=== PATIENT | female | born 1995 | race Hispanic/Latino ===

== ENCOUNTER 2018-07-25 12:57 | Emergency (ER) | payer OTHER, MEDICAID, SELFPAY ==
[2018-07-25 13:02] VITALS: BP 141/89; PULSE 83; RESP 18; O2SAT 100
--- NOTE | 2018-07-25 13:15 | ED_ITS ---
HPI - Nausea/Vomiting/Diarrhea General Chief complaint: Nausea/Vomiting/Diarrhea Stated complaint: Dehydrated, going through withdrawels Time Seen by Provider: 07/25/18 13:08 Source: patient Mode of arrival: ambulatory Limitations: no limitations History of Present Illness HPI Narrative: [id number] with history of IV drug abuse presents with withdrawal symptoms. She has a long history of intravenous heroin abuse and had been going to a local facility receiving methadone. She had tapered up to a dose as high as 95 mg but after missing a few appointments was dropped back to 30 mg. Her last dose was July 12 and last follow-up at that clinic was on July 22. She was unable to produce a urine sample but oral swab was clean. She had mild withdrawal symptoms at that point time. She admittedly has been using IV heroin and attempt to improve her symptoms. There is fentanyl known to be in local heroin. Patient has persistent nausea and vomiting is not dizzy weak and lightheaded. She is agitated and has generalized abdominal cramping. MD complaint: nausea, vomiting and abdominal pain Onset (ago): hour(s) Description of Vomiting: food contents Description of Diarrhea: none Associated Abdominal Pain: Yes Location of pain: diffuse Quality: cramping Relieving factors: none Exacerbating factors: none Associated symptoms: nausea/vomiting Related Data Home Medications Medication Instructions Recorded Confirmed citalopram 40 mg PO DAILY 07/25/18 naloxone [Narcan] 1 spray INTRANASAL PRN PRN 07/25/18 07/25/18 Previous Rx's Medication Instructions Recorded alprazolam 0.25 mg PO BID-TID PRN #10 tab 07/25/18 ondansetron HCl [Zofran] 4 mg PO QID PRN #10 tab 07/25/18 Allergies Allergy/AdvReac Type Severity Reaction Status Date / Time No Known Drug Allergies Allergy Verified 07/25/18 13:11 Review of Systems Review of Systems All systems reviewed & are unremarkable except as noted in HPI and below Constitutional Reports chills, Denies fever(s), Reports headache(s), Denies lethargy and Denies weakness Eyes Denies change in vision, Denies eye discharge, Denies irritation and Denies loss of vision ENT Ears, Nose, Mouth, and Throat: Denies change in voice, Reports headache(s), Denies neck pain and Denies sore throat Cardiovascular Denies chest pain, Denies irregular heart rhythm, Denies lightheadedness, Denies palpitations, Denies dyspnea, Denies dyspnea on exertion and Denies orthopnea Respiratory Denies cough, Denies dyspnea, Denies dyspnea on exertion and Denies wheezing Gastrointestinal Gastrointestinal: Denies abdominal pain, Denies change in bowel habits, Denies diarrhea, Reports nausea and Reports vomiting Genitourinary Denies hematuria, Denies flank pain, Denies urinary incontinence and Denies urinary urgency Musculoskeletal Denies neck pain Integumentary/Breasts Denies pruritus, Denies erythema, Denies rash and Denies wounds Neurologic Denies confusion, Reports headache(s), Denies loss of vision and Denies weakness Psychiatric Denies anxiety, Denies confusion, Denies depression, Denies homicidal ideation and Denies suicidal ideation Endocrine Denies palpitations Hematologic/Lymphatic Denies easy bruising Allergic/Immunologic Denies wheezing PFSH Social History Smoking Status: Current every day smoker substance use type: IV drugs Exam Narrative Exam Narrative: GENERAL: 23-year-old female in obvious distress, writhing on the cart, mildly diaphoretic and vomiting HEAD: Atraumatic. Normocephalic. No temporal or scalp tenderness. EYES: Pupils equal round and reactive. Extraocular motions intact. No scleral icterus. No injection or drainage. ENT: Nose without bleeding, purulent drainage or septal hematoma. Throat without erythema, tonsillar hypertrophy or exudate. Uvula midline. Airway patent. NECK: Trachea midline. No JVD or lymphadenopathy. Supple, nontender, no meningeal signs. CARDIOVASCULAR: Regular rate and rhythm without murmurs, gallops, or rubs. RESPIRATORY: Clear to auscultation. Breath sounds equal bilaterally. No wheezes , rales, or rhonchi. GASTROINTESTINAL: Abdomen soft, non-tender, nondistended. No hepato-splenomegaly , or palpable masses. No guarding. EXTREMITIES: No clubbing, cyanosis, or edema. No joint tenderness, effusion, or edema noted. BACK: Nontender without deformity or crepitance. No flank tenderness. NEURO: AOx3. SKIN: No rash or erythema. Diaphoretic Initial Vital Signs Initial Vital Signs: Vital Signs Pulse Rate 83 07/25/18 13:02 Respiratory Rate 18 07/25/18 13:02 Blood Pressure 141/89 H 07/25/18 13:02 Pulse Oximetry 100 07/25/18 13:02 Course Orders Ordered: ED Orders 07/25/18 13:15 Urine Drug Screen, Rapid Stat 07/25/18 13:25 Comprehensive Metabolic Panel Stat 07/25/18 13:53 Complete Blood Count AUTO DIFF Stat Discontinued Medications Clonidine HCl (Catapres-Tts 1) 0.1 mg TOP NOW ONE Stop: 07/25/18 13:28 Last Admin: 07/25/18 13:35 Dose: 0.1 mg Sodium Chloride (Normal Saline 0.9%) 1,000 mls @ 1,000 mls/hr IV BOLUS ONE Stop: 07/25/18 14:14 Last Infusion: 07/25/18 15:33 Dose: 0 mls/hr Admin: 07/25/18 14:23 Dose: 1,000 mls/hr Lorazepam (Ativan) 1 mg IV NOW ONE Stop: 07/25/18 14:56 Last Admin: 07/25/18 15:07 Dose: 1 mg Ondansetron HCl (Zofran) 4 mg IV NOW ONE Stop: 07/25/18 13:16 Last Admin: 07/25/18 14:22 Dose: 4 mg Consultations Consultation #1: I have discussed this case with the providers at local methadone clinic whom provided the details noted in the history and physical. They are happy to see her again on Saturday as the clinic is closed on Saturday Vital Signs - 8 hr 07/25/18 13:02 Pulse Rate 83 Respiratory Rate 18 Blood Pressure 141/89 H Pulse Oximetry 100 MDM - Nausea/Vomiting/Diarrhea Lab Data Result diagrams: 07/25/18 13:53 07/25/18 13:25 Lab Results 07/25/18 07/25/18 Range/Units 13:25 13:53 WBC 11.5 H (4.5-11.0) X10^3/uL RBC 5.06 (4.0-5.2) X10^6/uL Hgb 14.6 (12.0-16.0) g/dL Hct 43.7 (36-46) % MCV 86.4 (80-100) fL MCH 28.9 (26-34) PG MCHC 33.5 (30-36) % RDW 13.6 (11.6-14.8) % Plt Count 296 (150-400) X10^3/uL Neut % (Auto) 86.8 H (50-75) % Lymph % (Auto) 8.4 L (25-40) % [place] % (Auto) 3.7 (3-14) % Eos % (Auto) 0.0 L (2-4) % Baso % (Auto) 1.1 (0-2) % Neut # (Auto) 93175 H (1321-5347) /uL Sodium 143 (137-145) mmol/L Potassium 4.1 (3.4-5.1) mmol/L Chloride 102 (98-107) mmol/L Carbon Dioxide 24 (22-32) mmol/L BUN 9 (7-17) mg/dL Creatinine 0.90 (0.52-1.04) mg/dL Estimated GFR > 60.0 (>60) mL/min BUN/Creatinine Ratio 10.0 (6-22) Glucose 125 H (70-100) mg/dL Calcium 10.4 H (8.4-10.2) mg/dL Total Bilirubin 0.6 (0.2-1.3) mg/dL AST 24 (14-36) IU/L ALT 25 (9-52) IU/L Alkaline Phosphatase 120 (38-126) U/L Total Protein 9.5 H (6.3-8.2) g/dL Albumin 5.2 H (3.5-5.0) g/dL Globulin 4.3 H (1.7-4.1) g/dL Albumin/Globulin Ratio 1.2 (1.0-2.8) Discharge Plan Departure Patient Disposition: Home Clinical Impression: Withdrawal from opioids Instructions: DI for Opioid Addiction Activity Restrictions/Additional Instructions: *You have been diagnosed with [opioid withdrawal ] *What to do: *Take medications as directed *Follow up with your primary care provider in 2-3 days, call for an appointment. Let them know you were seen in the Emergency Department and that we ask that you be seen in follow up *Return to ER if you should have any new, worsening or concerning symptoms Prescriptions: New ondansetron HCl [Zofran] 4 mg tablet 4 mg PO QID PRN (Reason: nausea and vomiting) Qty: 10 RF: 0 alprazolam 0.5 mg tablet 0.25 mg PO BID-TID PRN (Reason: anxiety) Qty: 10 RF: 0 No Action citalopram 40 mg tablet 40 mg PO DAILY RF: 0 naloxone [Narcan] 4 mg/actuation spray,non-aerosol 1 spray Intranasal PRN PRN (Reason: overdose) RF: 0 Referrals: [facility] [Outside] Provider,Conversion [Non-Staff] -
[2018-07-25] MEDS: cloNIDine TTS 0.1 MG PATCH TOP (13:35)
[2018-07-25 13:54] LABS: Alanine Aminotransferase 25 IU/L (9-52); Albumin 5.2 g/dL (3.5-5.0); Albumin Globulin Ratio 1.2 (1.0-2.8); Alkaline Phosphatase 120 U/L (38-126); Aspartate Aminotransferase 24 IU/L (14-36); Bilirubin Total 0.6 mg/dL (0.2-1.3); Blood Urea Nitrogen 9 mg/dL (7-17); Calcium 10.4 mg/dL (8.4-10.2); Carbon Dioxide 24 mmol/L (22-32); Chloride 102 mmol/L (98-107); Estimated Glomerular Filt Rate > 60.0 mL/min (>60); Globulin 4.3 g/dL (1.7-4.1); Glucose 125 mg/dL (70-100); HEMOLYSIS 27 (0-50); Potassium 4.1 mmol/L (3.4-5.1); Sodium 143 mmol/L (137-145); Total Protein 9.5 g/dL (6.3-8.2)
[2018-07-25 14:00] VITALS: BP 125/83; PULSE 89; RESP 28; TEMP 37.1; O2SAT 100
[2018-07-25 14:01] LABS: Add Manual Diff / Slide Review NO; Basophils Percent Auto 1.1 % (0-2); Hematocrit 43.7 % (36-46); Hemoglobin 14.6 g/dL (12.0-16.0); Lymphocytes Percent Auto 8.4 % (25-40); Mean Corpuscular HGB Conc 33.5 % (30-36); Mean Corpuscular Hemoglobin 28.9 PG (26-34); Mean Corpuscular Volume 86.4 fL (80-100); Monocytes Percent Auto 3.7 % (3-14); Neutrophils Absolute Auto 10000 /uL (3000-5900); Neutrophils Percent Auto 86.8 % (50-75); Platelet Count 296 X10^3/uL (150-400); Red Blood Cell Count 5.06 X10^6/uL (4.0-5.2); Red Cell Distribution Width 13.6 % (11.6-14.8); White Blood Cell Count 11.5 X10^3/uL (4.5-11.0)
[2018-07-25] MEDS: ONDANSETRON 4 MG/2 ML INJ IV (14:22)
[2018-07-25] MEDS: SODIUM CHLORIDE 0.9% 1,000 ML 1000 ML IV (14:23)
[2018-07-25 15:00] VITALS: BP 146/88; PULSE 78; RESP 100; O2SAT 100
[2018-07-25] MEDS: LORazepam 2 MG/ML SYRINGE 1 MG IV (15:07)
--- NOTE | 2018-07-25 15:19 | CM.SWNOTE ---
ED CHAINSTITCH P[employer] OUTSEAMER NOTE Presenting problem: CUSTOMER INSIGHT ANALYST reviewed record and learned that identified presenting problem is withdrawal from IV drugs. Pt had been taking Methadone, was connected with [facility], but due to soem missed appointments has not been taking Methadone for a few days. Pt came in with symptoms of withdrawal. Assessment: Due to pt's significant discomfort, CUSTOMER INSIGHT ANALYST did not meet with her, but spoke with her boyfriend. She was in agreement with this. According to pt's boyfriend, she does not do well with Suboxone, and has a dx of PTSD, anxiety and Schizophrenia. Pt was lying in bed, appeared quite agitated was asking that bf call her mommy and spoke of feeling quite sick. Goal: Once medically cleared, pt will return home. Resources were provided to pt's boyfrined. CUSTOMER INSIGHT ANALYST contacted [facility] [phone]. I was informed that there is a 2 week wait for MH services and a 2-3 week wait for CD services. Unfortunately the pt needs to call and arrange for two separate intake appointments. Pt's boyfreind seemed to understand the information presented and [facility] also provided a written handout with information about several different community agencies. No further SW needs identified, but SW remains available during this scheduled shift. Thank you ALAN Castillo
[2018-07-25 16:17] VITALS: BP 149/79; PULSE 18; RESP 20; O2SAT 100
== END 2018-07-25 16:28 | disposition home or self-care (01) ==
PROVIDERS: Emergency Provider Emergency Medicine
DX: F11.23 Opioid dependence with withdrawal (principal)
CPT/HCPCS: 36415; 80053; 85025; 96361; 96374; 96375; 99283; 99284; J2060; J2405

== ENCOUNTER 2018-09-12 19:12 | Emergency (ER) | payer OTHER, MEDICAID, SELFPAY ==
[2018-09-12 19:24] VITALS: BP 157/91; PULSE 107; RESP 20; TEMP 36.9; O2SAT 99
--- NOTE | 2018-09-12 19:29 | ED.FEMALEGU ---
HPI - Female Genitourinary General Chief complaint: Vaginal Bleeding Stated complaint: VAGINAL BLEEDING,THROWING UP Time Seen by Provider: 09/12/18 19:20 Source: patient Mode of arrival: ambulatory Limitations: no limitations History of Present Illness HPI Narrative: Patient is a 23-year-old female who presents with vaginal bleeding. She said she had normal period 2 weeks ago however over the last 2 days she has had increasing blood clots and pelvic pain. She denies any contraceptive use and does not believe that she is . She denies any lightheadedness dizziness or shortness of breath. He does seem to be slightly clammy and uncomfortable. She complains of nausea but no vomiting. She says she has gone through number of regular tampons today does not think she is going through more than 1 hr. She does have a history of IV drug abuse and heroin she was last seen with heroin withdrawal. She says she has not used for number weeks although she does admit to using to Percocet. And she was around somebody he was smoking methamphetamine but denies smoking. Related Data Home Medications Medication Instructions Recorded Confirmed naloxone [Narcan] 1 spray INTRANASAL PRN PRN 07/25/18 09/12/18 Previous Rx's Medication Instructions Recorded medroxyprogesterone 20 mg PO Q2HR #10 tab 09/12/18 Allergies Allergy/AdvReac Type Severity Reaction Status Date / Time No Known Drug Allergies Allergy Verified 07/25/18 13:11 Review of Systems Review of Systems GENERAL: Denies chills, fatigue, malaise, fever, sweats, travel HEENT: Denies sinus pain, ear pain, sore throat, difficulty swallowing, neck pain RESPIRATORY: Denies dyspnea, cough, wheezing, hemoptysis, sputum. CARDIOVASCULAR: Denies chest pain, palpitations, orthopnea, edema GASTROINTESTINAL: Denies nausea, vomiting, abdominal pain, diarrhea, constipation, melena. : Denies dysuria, frequency, incontinence, hematuria, urinary retention, flank pain. COOK RESTAURANT: See HPI MUSCULOSKELETAL: Denies weakness, joint pain, or bony pain SKIN: No rash, no erythema, no pruritus NEUROLOGIC: Denies weakness, dizziness, headache, numbness, change in speech, confusion PSYCHIATRIC: No concerning psychosocial issues. 12 point review of systems is negative except for those stated above and HPI [facility] Medical History Patient denies medical problems (Acute) Social History Smoking Status: Current every day smoker substance use type: IV drugs Exam Initial Vital Signs Initial Vital Signs: Vital Signs Temperature 98.4 F 09/12/18 19:24 Pulse Rate 107 H 09/12/18 19:24 Respiratory Rate 20 09/12/18 19:24 Blood Pressure 157/91 H 09/12/18 19:24 Pulse Oximetry 99 09/12/18 19:24 GENERAL: Young female appears uncomfortable alert oriented x4 HEENT: Head atraumatic,EOMI, pupils reactive CARDIOVASCULAR: Regular rate and rhythm without murmurs, rubs or gallops. RESPIRATORY: Breath sounds equal bilaterally, no wheezes rales or rhonchi. ABDOMEN: Soft, nontender. Normoactive bowel sounds all 4 quadrants. No guarding or rebound. PELVIC: External genitalia is normal, mild vaginal bleeding, os open EXTREMITIES: Normal range of motion, no clubbing or edema. Neurovascularly intact NEUROLOGICAL: Alert and oriented x4.Normal gait and speech. Cranial nerves II through XII grossly intact. SKIN: Warm, dry, no laceration, no petechiae, no rashes or lesions. Course Orders Ordered: ED Orders 09/12/18 19:30 US pelvic complete Stat 09/12/18 19:40 Complete Blood Count AUTO DIFF Stat Comprehensive Metabolic Panel Stat 09/12/18 20:45 Urine Culture Stat Urine Microscopic Stat Discontinued Medications Sodium Chloride (Normal Saline 0.9%) 1,000 mls @ 1,000 mls/hr IV BOLUS ONE Stop: 09/12/18 20:28 Last Infusion: 09/12/18 21:45 Dose: 0 mls/hr Admin: 09/12/18 19:49 Dose: 1,000 mls/hr Ketorolac Tromethamine (Toradol) 30 mg IV NOW ONE Stop: 09/12/18 19:30 Last Admin: 09/12/18 19:53 Dose: 30 mg Medroxyprogesterone Acetate (Medroxyprogesterone) 20 mg PO NOW ONE Stop: 09/12/18 21:03 Last Admin: 09/12/18 21:24 Dose: 20 mg Medroxyprogesterone Acetate (Medroxyprogesterone) 40 mg PO NOW VIRGIL Stop: 09/13/18 21:16 Last Admin: 09/12/18 21:25 Dose: 40 mg Ondansetron HCl (Zofran) 4 mg IV NOW ONE Stop: 09/12/18 19:30 Last Admin: 09/12/18 19:50 Dose: 4 mg Vital Signs - 8 hr 09/12/18 19:24 09/12/18 21:21 Temperature 98.4 F Pulse Rate 107 H 108 H Respiratory Rate 20 Blood Pressure 157/91 H Blood Pressure [Left Arm] 149/107 H Pulse Oximetry 99 98 MDM - Female Genitourinary Lab Data Attestation: I reviewed the patient's lab results. Result diagrams: 09/12/18 19:40 09/12/18 19:40 Lab Results 09/12/18 09/12/18 09/12/18 Range/Units 19:40 19:40 20:45 WBC 12.1 H (4.5-11.0) X10^3/uL RBC 4.56 (4.0-5.2) X10^6/uL Hgb 13.5 (12.0-16.0) g/dL Hct 40.6 (36-46) % MCV 89.1 (80-100) fL MCH 29.7 (26-34) PG MCHC 33.3 (30-36) % RDW 15.6 H (11.6-14.8) % Plt Count 251 (150-400) X10^3/uL Neut % (Auto) 72.0 (50-75) % Lymph % (Auto) 21.6 L (25-40) % [place] % (Auto) 5.6 (3-14) % Eos % (Auto) 0.4 L (2-4) % Baso % (Auto) 0.4 (0-2) % Neut # (Auto) 8700 H (6499-8903) /uL Sodium 142 (137-145) mmol/L Potassium 3.8 (3.4-5.1) mmol/L Chloride 104 (98-107) mmol/L Carbon Dioxide 25 (22-32) mmol/L BUN 10 (7-17) mg/dL Creatinine 0.90 (0.52-1.04) mg/dL Estimated GFR > 60.0 (>60) mL/min BUN/Creatinine Ratio 11.1 (6-22) Glucose 111 H (70-100) mg/dL Calcium 9.9 (8.4-10.2) mg/dL Total Bilirubin 0.6 (0.2-1.3) mg/dL AST 21 (14-36) IU/L ALT 26 (9-52) IU/L Alkaline Phosphatase 74 (38-126) U/L Total Protein 8.2 (6.3-8.2) g/dL Albumin 4.9 (3.5-5.0) g/dL Globulin 3.3 (1.7-4.1) g/dL Albumin/Globulin Ratio 1.5 (1.0-2.8) Urine RBC 1-5/hpf (0-5/HPF) Urine WBC 5-10/hpf H (0-5/HPF) Ur Squamous Epith Cells 1-5 /hpf Amorphous Sediment 1+ Urine Bacteria Few (2-10) H (None) Urine Mucus 1+ H (Negative) Ur Culture Indicated? Specimen cultured Micro UA Comment Not Reportable Urine Opiates Screen Ur Oxycodone Screen Urine Methadone Screen Ur Barbiturates Screen U Tricyclic Antidepress Ur Phencyclidine Scrn Ur Amphetamines Screen U Methamphetamines Scrn Ur MDMA Scrn (Ecstasy) U Benzodiazepines Scrn Urine Cocaine Screen U Marijuana (THC) Screen 09/12/18 Range/Units 21:38 WBC (4.5-11.0) X10^3/uL RBC (4.0-5.2) X10^6/uL Hgb (12.0-16.0) g/dL Hct (36-46) % MCV (80-100) fL MCH (26-34) PG MCHC (30-36) % RDW (11.6-14.8) % Plt Count (150-400) X10^3/uL Neut % (Auto) (50-75) % Lymph % (Auto) (25-40) % [place] % (Auto) (3-14) % Eos % (Auto) (2-4) % Baso % (Auto) (0-2) % Neut # (Auto) (0256-6729) /uL Sodium (137-145) mmol/L Potassium (3.4-5.1) mmol/L Chloride (98-107) mmol/L Carbon Dioxide (22-32) mmol/L BUN (7-17) mg/dL Creatinine (0.52-1.04) mg/dL Estimated GFR (>60) mL/min BUN/Creatinine Ratio (6-22) Glucose (70-100) mg/dL Calcium (8.4-10.2) mg/dL Total Bilirubin (0.2-1.3) mg/dL AST (14-36) IU/L ALT (9-52) IU/L Alkaline Phosphatase (38-126) U/L Total Protein (6.3-8.2) g/dL Albumin (3.5-5.0) g/dL Globulin (1.7-4.1) g/dL Albumin/Globulin Ratio (1.0-2.8) Urine RBC (0-5/HPF) Urine WBC (0-5/HPF) Ur Squamous Epith Cells Amorphous Sediment Urine Bacteria (None) Urine Mucus (Negative) Ur Culture Indicated? Micro UA Comment Urine Opiates Screen Cancelled Ur Oxycodone Screen Cancelled Urine Methadone Screen Cancelled Ur Barbiturates Screen Cancelled U Tricyclic Antidepress Cancelled Ur Phencyclidine Scrn Cancelled Ur Amphetamines Screen Cancelled U Methamphetamines Scrn Cancelled Ur MDMA Scrn (Ecstasy) Cancelled U Benzodiazepines Scrn Cancelled Urine Cocaine Screen Cancelled U Marijuana (THC) Screen Cancelled Point of Care Testing Test Results Negative Urine Dip Bedside Urine Glucose Negative Bedside Urine Bilirubin - Negative Bedside Urine Ketone + 15 Urine Specific [place] 1.030 Bedside Urine Occult Blood ++ Bedside Urine pH 6.0 Bedside Urine Protein +/- 15 Bedside Urine Urobilinogen - Negative Bedside Urine Nitrite - Negative Bedside Urine Leukocytes - Negative Esterase Imaging Data pelvic US: Radiologist's impression: PROCEDURE: US PELVIC COMPLETE INDICATIONS: vaginal bleeding TECHNIQUE: Real-time scanning was performed of the pelvic organs, with image documentation. Additional endovaginal scanning was necessary due to incomplete visualization of the adnexal and endometrial structures by transabdominal scanning. COMPARISON: [facility], [place], US PELVIC+TRANSVAG, 05/13/2017, 17:41. [facility], [place], US ABDOMEN, 11/08/2016, 7:25. [facility], [place], OB SONO > 14 WKS, 11/18/2014, 11:28. [facility], [place], OBSTETRICAL LTD, 10/28/2014, 12:19. FINDINGS: Transabdominal scanning: Limited scanning through the kidneys shows no hydronephrosis. Endovaginal scanning: Uterus: Uterus is normal in size at 6.4 x 4.5 x 3.0 cm. The endometrium measures 5 mm in combined thickness. There is a small volume of fluid within physiologic limits within the posterior cul-de-sac. Ovaries: Right ovary measures 2.0 x 2.2 x 3.0 cm. Left ovary measures 2.5 x 2.0 x 3.4 cm. Small follicles are noted bilaterally. IMPRESSION: No ultrasound findings to explain patient's reported vaginal bleeding. Preliminary findings were discussed by the serials librarian with the referring provider Dr. Harrison at 2010 hrs. on 09/12/18. Dictated by: Reilly Brito M.D. on 09/12/2018 at 20:34 Approved by: Reilly Brito M.D. on 09/12/2018 at 20:38 MDM Narrative Medical decision making narrative: Patient has not had significant bleeding here. Her vitals have been within normal limits. She is given 1 dose of Provera. She has not actually had a menstrual cycle since November 2017. test is negative. A [facility] [place] [facility] needed. I recommend that she follow up there she may need control to help regulate her cycle. Discharge Plan Departure Patient Disposition: Home Clinical Impression: Dysfunctional uterine bleeding Discharge Date/Time: 09/12/18 21:50 Interventions: ED Discharge Assessment Last Done: 09/12/18 21:52 Instructions: DI for Vaginal Bleeding Activity Restrictions/Additional Instructions: *You have been diagnosed with vaginal bleeding *What to do: Dysfunctional uterine bleeding likely due to not having a menstrual period for some time *Continue to take medications as directed Provera 20 mg every 2 hr for significant vaginal bleeding *Follow up with your primary care provider in 2-3 days *Return to ER if you should have going through more than 1 super pad or tampon an hour, lightheadedness dizziness increasing pain or any new, worsening or concerning symptoms Prescriptions: New medroxyprogesterone 10 mg tablet 20 mg PO Q2HR Qty: 10 RF: 0 No Action naloxone [Narcan] 4 mg/actuation spray,non-aerosol 1 spray Intranasal PRN PRN (Reason: overdose) RF: 0 Referrals: Provider,Conversion [Non-Staff] - Bernadette Coronado MD [Physician] - Trixie Gautam MD [Physician] - Agapito Fink MD [Physician] -
--- NOTE | 2018-09-12 19:38 | ED_ITS ---
HPI - Female Genitourinary General Chief complaint: Vaginal Bleeding Stated complaint: VAGINAL BLEEDING,THROWING UP Time Seen by Provider: 09/12/18 19:20 Source: patient Mode of arrival: ambulatory Limitations: no limitations History of Present Illness HPI Narrative: Patient is a 23-year-old female who presents with vaginal bleeding. She said she had normal period 2 weeks ago however over the last 2 days she has had increasing blood clots and pelvic pain. She denies any contraceptive use and does not believe that she is . She denies any lightheadedness dizziness or shortness of breath. He does seem to be slightly clammy and uncomfortable. She complains of nausea but no vomiting. She says she has gone through number of regular tampons today does not think she is going through more than 1 hr. She does have a history of IV drug abuse and heroin she was last seen with heroin withdrawal. She says she has not used for number weeks although she does admit to using to Percocet. And she was around somebody he was smoking methamphetamine but denies smoking. Related Data Home Medications Medication Instructions Recorded Confirmed naloxone [Narcan] 1 spray INTRANASAL PRN PRN 07/25/18 09/12/18 Previous Rx's Medication Instructions Recorded medroxyprogesterone 20 mg PO Q2HR #10 tab 09/12/18 Allergies Allergy/AdvReac Type Severity Reaction Status Date / Time No Known Drug Allergies Allergy Verified 07/25/18 13:11 Review of Systems Review of Systems GENERAL: Denies chills, fatigue, malaise, fever, sweats, travel HEENT: Denies sinus pain, ear pain, sore throat, difficulty swallowing, neck pain RESPIRATORY: Denies dyspnea, cough, wheezing, hemoptysis, sputum. CARDIOVASCULAR: Denies chest pain, palpitations, orthopnea, edema GASTROINTESTINAL: Denies nausea, vomiting, abdominal pain, diarrhea, constipation, melena. : Denies dysuria, frequency, incontinence, hematuria, urinary retention, flank pain. PROJECT MANAGEMENT ANALYST: See HPI MUSCULOSKELETAL: Denies weakness, joint pain, or bony pain SKIN: No rash, no erythema, no pruritus NEUROLOGIC: Denies weakness, dizziness, headache, numbness, change in speech, confusion PSYCHIATRIC: No concerning psychosocial issues. 12 point review of systems is negative except for those stated above and HPI [facility] Medical History Patient denies medical problems (Acute) Social History Smoking Status: Current every day smoker substance use type: IV drugs Exam Initial Vital Signs Initial Vital Signs: Vital Signs Temperature 98.4 F 09/12/18 19:24 Pulse Rate 107 H 09/12/18 19:24 Respiratory Rate 20 09/12/18 19:24 Blood Pressure 157/91 H 09/12/18 19:24 Pulse Oximetry 99 09/12/18 19:24 GENERAL: Young female appears uncomfortable alert oriented x4 HEENT: Head atraumatic,EOMI, pupils reactive CARDIOVASCULAR: Regular rate and rhythm without murmurs, rubs or gallops. RESPIRATORY: Breath sounds equal bilaterally, no wheezes rales or rhonchi. ABDOMEN: Soft, nontender. Normoactive bowel sounds all 4 quadrants. No guarding or rebound. PELVIC: External genitalia is normal, mild vaginal bleeding, os open EXTREMITIES: Normal range of motion, no clubbing or edema. Neurovascularly intact NEUROLOGICAL: Alert and oriented x4.Normal gait and speech. Cranial nerves II through XII grossly intact. SKIN: Warm, dry, no laceration, no petechiae, no rashes or lesions. Course Orders Ordered: ED Orders 09/12/18 19:30 US pelvic complete Stat 09/12/18 19:40 Complete Blood Count AUTO DIFF Stat Comprehensive Metabolic Panel Stat 09/12/18 20:45 Urine Culture Stat Urine Microscopic Stat Discontinued Medications Sodium Chloride (Normal Saline 0.9%) 1,000 mls @ 1,000 mls/hr IV BOLUS ONE Stop: 09/12/18 20:28 Last Infusion: 09/12/18 21:45 Dose: 0 mls/hr Admin: 09/12/18 19:49 Dose: 1,000 mls/hr Ketorolac Tromethamine (Toradol) 30 mg IV NOW ONE Stop: 09/12/18 19:30 Last Admin: 09/12/18 19:53 Dose: 30 mg Medroxyprogesterone Acetate (Medroxyprogesterone) 20 mg PO NOW ONE Stop: 09/12/18 21:03 Last Admin: 09/12/18 21:24 Dose: 20 mg Medroxyprogesterone Acetate (Medroxyprogesterone) 40 mg PO NOW VIRGIL Stop: 09/13/18 21:16 Last Admin: 09/12/18 21:25 Dose: 40 mg Ondansetron HCl (Zofran) 4 mg IV NOW ONE Stop: 09/12/18 19:30 Last Admin: 09/12/18 19:50 Dose: 4 mg Vital Signs - 8 hr 09/12/18 19:24 09/12/18 21:21 Temperature 98.4 F Pulse Rate 107 H 108 H Respiratory Rate 20 Blood Pressure 157/91 H Blood Pressure [Left Arm] 149/107 H Pulse Oximetry 99 98 MDM - Female Genitourinary Lab Data Attestation: I reviewed the patient's lab results. Result diagrams: 09/12/18 19:40 09/12/18 19:40 Lab Results 09/12/18 09/12/18 09/12/18 Range/Units 19:40 19:40 20:45 WBC 12.1 H (4.5-11.0) X10^3/uL RBC 4.56 (4.0-5.2) X10^6/uL Hgb 13.5 (12.0-16.0) g/dL Hct 40.6 (36-46) % MCV 89.1 (80-100) fL MCH 29.7 (26-34) PG MCHC 33.3 (30-36) % RDW 15.6 H (11.6-14.8) % Plt Count 251 (150-400) X10^3/uL Neut % (Auto) 72.0 (50-75) % Lymph % (Auto) 21.6 L (25-40) % [place] % (Auto) 5.6 (3-14) % Eos % (Auto) 0.4 L (2-4) % Baso % (Auto) 0.4 (0-2) % Neut # (Auto) 8700 H (2072-0521) /uL Sodium 142 (137-145) mmol/L Potassium 3.8 (3.4-5.1) mmol/L Chloride 104 (98-107) mmol/L Carbon Dioxide 25 (22-32) mmol/L BUN 10 (7-17) mg/dL Creatinine 0.90 (0.52-1.04) mg/dL Estimated GFR > 60.0 (>60) mL/min BUN/Creatinine Ratio 11.1 (6-22) Glucose 111 H (70-100) mg/dL Calcium 9.9 (8.4-10.2) mg/dL Total Bilirubin 0.6 (0.2-1.3) mg/dL AST 21 (14-36) IU/L ALT 26 (9-52) IU/L Alkaline Phosphatase 74 (38-126) U/L Total Protein 8.2 (6.3-8.2) g/dL Albumin 4.9 (3.5-5.0) g/dL Globulin 3.3 (1.7-4.1) g/dL Albumin/Globulin Ratio 1.5 (1.0-2.8) Urine RBC 1-5/hpf (0-5/HPF) Urine WBC 5-10/hpf H (0-5/HPF) Ur Squamous Epith Cells 1-5 /hpf Amorphous Sediment 1+ Urine Bacteria Few (2-10) H (None) Urine Mucus 1+ H (Negative) Ur Culture Indicated? Specimen cultured Micro UA Comment Not Reportable Urine Opiates Screen Ur Oxycodone Screen Urine Methadone Screen Ur Barbiturates Screen U Tricyclic Antidepress Ur Phencyclidine Scrn Ur Amphetamines Screen U Methamphetamines Scrn Ur MDMA Scrn (Ecstasy) U Benzodiazepines Scrn Urine Cocaine Screen U Marijuana (THC) Screen 09/12/18 Range/Units 21:38 WBC (4.5-11.0) X10^3/uL RBC (4.0-5.2) X10^6/uL Hgb (12.0-16.0) g/dL Hct (36-46) % MCV (80-100) fL MCH (26-34) PG MCHC (30-36) % RDW (11.6-14.8) % Plt Count (150-400) X10^3/uL Neut % (Auto) (50-75) % Lymph % (Auto) (25-40) % [place] % (Auto) (3-14) % Eos % (Auto) (2-4) % Baso % (Auto) (0-2) % Neut # (Auto) (1707-2283) /uL Sodium (137-145) mmol/L Potassium (3.4-5.1) mmol/L Chloride (98-107) mmol/L Carbon Dioxide (22-32) mmol/L BUN (7-17) mg/dL Creatinine (0.52-1.04) mg/dL Estimated GFR (>60) mL/min BUN/Creatinine Ratio (6-22) Glucose (70-100) mg/dL Calcium (8.4-10.2) mg/dL Total Bilirubin (0.2-1.3) mg/dL AST (14-36) IU/L ALT (9-52) IU/L Alkaline Phosphatase (38-126) U/L Total Protein (6.3-8.2) g/dL Albumin (3.5-5.0) g/dL Globulin (1.7-4.1) g/dL Albumin/Globulin Ratio (1.0-2.8) Urine RBC (0-5/HPF) Urine WBC (0-5/HPF) Ur Squamous Epith Cells Amorphous Sediment Urine Bacteria (None) Urine Mucus (Negative) Ur Culture Indicated? Micro UA Comment Urine Opiates Screen Cancelled Ur Oxycodone Screen Cancelled Urine Methadone Screen Cancelled Ur Barbiturates Screen Cancelled U Tricyclic Antidepress Cancelled Ur Phencyclidine Scrn Cancelled Ur Amphetamines Screen Cancelled U Methamphetamines Scrn Cancelled Ur MDMA Scrn (Ecstasy) Cancelled U Benzodiazepines Scrn Cancelled Urine Cocaine Screen Cancelled U Marijuana (THC) Screen Cancelled Point of Care Testing Test Results Negative Urine Dip Bedside Urine Glucose Negative Bedside Urine Bilirubin - Negative Bedside Urine Ketone + 15 Urine Specific [place] 1.030 Bedside Urine Occult Blood ++ Bedside Urine pH 6.0 Bedside Urine Protein +/- 15 Bedside Urine Urobilinogen - Negative Bedside Urine Nitrite - Negative Bedside Urine Leukocytes - Negative Esterase Imaging Data pelvic US: Radiologist's impression: PROCEDURE: US PELVIC COMPLETE INDICATIONS: vaginal bleeding TECHNIQUE: Real-time scanning was performed of the pelvic organs, with image documentation. Additional endovaginal scanning was necessary due to incomplete visualization of the adnexal and endometrial structures by transabdominal scanning. COMPARISON: [facility], US, US PELVIC+TRANSVAG, 05/13/2017, 17:41. [facility], US, US ABDOMEN, 11/08/2016, 7:25. [facility], US, OB SONO > 14 WKS, 11/18/2014, 11:28. [facility], US, OBSTETRICAL LTD, 10/28/2014, 12: 19. FINDINGS: Transabdominal scanning: Limited scanning through the kidneys shows no hydronephrosis. Endovaginal scanning: Uterus: Uterus is normal in size at 6.4 x 4.5 x 3.0 cm. The endometrium measures 5 mm in combined thickness. There is a small volume of fluid within physiologic limits within the posterior cul-de-sac. Ovaries: Right ovary measures 2.0 x 2.2 x 3.0 cm. Left ovary measures 2.5 x 2.0 x 3.4 cm. Small follicles are noted bilaterally. IMPRESSION: No ultrasound findings to explain patient's reported vaginal bleeding. Preliminary findings were discussed by the emissions inspector with the referring provider Dr. Harrison at 2010 hrs. on 09/12/18. Dictated by: Reilly Brito M.D. on 09/12/2018 at 20:34 Approved by: Reilly Brito M.D. on 09/12/2018 at 20:38 MDM Narrative Medical decision making narrative: Patient has not had significant bleeding here. Her vitals have been within normal limits. She is given 1 dose of Provera. She has not actually had a menstrual cycle since November 2017. test is negative. A [facility] [place] [facility] needed. I recommend that she follow up there she may need control to help regulate her cycle. Discharge Plan Departure Patient Disposition: Home Clinical Impression: Dysfunctional uterine bleeding Discharge Date/Time: 09/12/18 21:50 Interventions: ED Discharge Assessment Last Done: 09/12/18 21:52 Instructions: DI for Vaginal Bleeding Activity Restrictions/Additional Instructions: *You have been diagnosed with vaginal bleeding *What to do: Dysfunctional uterine bleeding likely due to not having a menstrual period for some time *Continue to take medications as directed Provera 20 mg every 2 hr for significant vaginal bleeding *Follow up with your primary care provider in 2-3 days *Return to ER if you should have going through more than 1 super pad or tampon an hour, lightheadedness dizziness increasing pain or any new, worsening or concerning symptoms Prescriptions: New medroxyprogesterone 10 mg tablet 20 mg PO Q2HR Qty: 10 RF: 0 No Action naloxone [Narcan] 4 mg/actuation spray,non-aerosol 1 spray Intranasal PRN PRN (Reason: overdose) RF: 0 Referrals: Provider,Conversion [Non-Staff] - Bernadette Coronado MD [Physician] - Trixie Gautam MD [Physician] - Agapito Fink MD [Physician] -
--- NOTE | 2018-09-12 19:40 | PC.NURSE ---
While in patients room establishing PIV access she asked me to pass on information to the doctor. She requested that this RN pass on the message that she took a percocet 3 days ago, states she didn't want it to show on UDS and think that she had lied to staff. Honesty was appreciated. Information was passed on to Dr. Harrison, message was acknowledged.
[2018-09-12] MEDS: SODIUM CHLORIDE 0.9% 1,000 ML 1000 ML IV (19:49)
[2018-09-12] MEDS: ONDANSETRON 4 MG/2 ML INJ IV (19:50)
[2018-09-12 19:52] LABS: Add Manual Diff / Slide Review NO; Basophils Percent Auto 0.4 % (0-2); Eosinophils Percent Auto 0.4 % (2-4); Hematocrit 40.6 % (36-46); Hemoglobin 13.5 g/dL (12.0-16.0); Lymphocytes Percent Auto 21.6 % (25-40); Mean Corpuscular HGB Conc 33.3 % (30-36); Mean Corpuscular Hemoglobin 29.7 PG (26-34); Mean Corpuscular Volume 89.1 fL (80-100); Monocytes Percent Auto 5.6 % (3-14); Neutrophils Absolute Auto 8700 /uL (1500-7000); Platelet Count 251 X10^3/uL (150-400); Red Blood Cell Count 4.56 X10^6/uL (4.0-5.2); Red Cell Distribution Width 15.6 % (11.6-14.8); White Blood Cell Count 12.1 X10^3/uL (4.5-11.0)
[2018-09-12] MEDS: KETOROLAC 30 MG/ML VIAL IV (19:53)
[2018-09-12 20:04] LABS: Alanine Aminotransferase 26 IU/L (9-52); Albumin 4.9 g/dL (3.5-5.0); Albumin Globulin Ratio 1.5 (1.0-2.8); Alkaline Phosphatase 74 U/L (38-126); Aspartate Aminotransferase 21 IU/L (14-36); BUN Creatinine Ratio 11.1 (6-22); Bilirubin Total 0.6 mg/dL (0.2-1.3); Blood Urea Nitrogen 10 mg/dL (7-17); Calcium 9.9 mg/dL (8.4-10.2); Carbon Dioxide 25 mmol/L (22-32); Chloride 104 mmol/L (98-107); Estimated Glomerular Filt Rate > 60.0 mL/min (>60); Globulin 3.3 g/dL (1.7-4.1); Glucose 111 mg/dL (70-100); HEMOLYSIS < 15 (0-50); Potassium 3.8 mmol/L (3.4-5.1); Sodium 142 mmol/L (137-145); Total Protein 8.2 g/dL (6.3-8.2)
[2018-09-12 20:55] LABS: Amorphous Sediment Urine 1+; RBC Urine 1-5/HPF (0-5/HPF); Squamous Epithelial Cell Urine 1-5 /HPF; WBC Urine 5-10/HPF (0-5/HPF)
[2018-09-12 20:56] LABS: Bacteria Urine Few (2-10); Culture Indicated Urine Specimen Cultured; Mucus Urine 1+ (Negative)
[2018-09-12 21:21] VITALS: BP 149/107; PULSE 108; O2SAT 98
[2018-09-12] MEDS: MEDROXYPROGESTERONE ACETATE 10 MG TABLET 20 MG PO (21:24)
[2018-09-12] MEDS: MEDROXYPROGESTERONE ACETATE 10 MG TABLET 40 MG PO (21:25)
== END 2018-09-12 21:50 | disposition home or self-care (01) ==
PROVIDERS: Emergency Provider Emergency Medicine
DX: N93.8 Other specified abnormal uterine and vaginal bleeding (principal)
CPT/HCPCS: 36591; 76830; 76856; 80053; 81003; 81015; 81025; 85025; 87086; 96361; 96374; 96375; 99283; 99284; J1885; J2405

== ENCOUNTER 2018-09-27 03:43 | Emergency (ER) | payer OTHER, MEDICAID, SELFPAY ==
[2018-09-27 03:50] VITALS: BP 134/79; PULSE 85; RESP 20; TEMP 36.9; O2SAT 100
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
[2018-09-27] MEDS: KETOROLAC 60 MG/2 ML VIAL IM (04:24)
[2018-09-27] MEDS: ONDANSETRON 4 MG ODT SL (04:24)
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
[2018-09-27 05:36] VITALS: BP 125/81; PULSE 80; RESP 18; O2SAT 98
== END 2018-09-27 05:36 | disposition home or self-care (01) ==
PROVIDERS: Emergency Provider Emergency Medicine
DX: M54.5 Low back pain (principal); Y09 Assault by unspecified means
CPT/HCPCS: 72131; 96372; 99281; 99283; J1885

== ENCOUNTER 2018-11-22 17:54 | Emergency (ER) | payer OTHER, MEDICAID, SELFPAY ==
[2018-11-22 18:05] VITALS: BP 153/90; PULSE 86; RESP 24; TEMP 37.6; O2SAT 100; BMI 28.1
--- NOTE | 2018-11-22 19:45 | ED_ITS ---
HPI - Abdominal Pain General Chief Complaint: Abdominal Pain Stated Complaint: DEHYDRATED/VOMITING Time Seen by Provider: 11/22/18 18:23 Source: patient and family Mode of arrival: ambulatory Limitations: no limitations History of Present Illness HPI narrative: 23F daily smoker, opioid user presents with her mother and a chief complaint of 24 hr of nausea, vomiting, diarrhea as well as stomach pain. She is having a hard time keeping down any food and drink. She has had no fever. She is becoming dizzy, weak and lightheaded. She denies recent antibiotics or international travel but does have a close family member with similar symptoms and likely got it from him. Her last period was 2 and half weeks ago and normal. She denies any vaginal bleeding or discharge. Her abdominal pain is generalized and worse when she moves and improves with rest. MD complaint: abdominal pain Onset (ago): hour(s) Pain Consistency: constant Location: diffuse Severity: moderate Quality: cramping Radiation: none Migration to: no migration Relieving factors: rest Exacerbating factors: movement Context: sick contacts Associated symptoms: nausea, vomiting and diarrhea Related Data Home Medications Medication Instructions Recorded Confirmed naloxone [Narcan] 1 spray INTRANASAL PRN PRN 07/25/18 09/12/18 Previous Rx's Medication Instructions Recorded medroxyprogesterone 20 mg PO Q2HR #10 tab 09/12/18 ketorolac 10 mg PO Q6H PRN #14 tab 09/27/18 ondansetron 4 mg PO TID-QID PRN #10 tab 11/22/18 promethazine 12.5 mg CO Q4-6H PRN #12 each 11/22/18 Allergies Allergy/AdvReac Type Severity Reaction Status Date / Time No Known Drug Allergies Allergy Verified 07/25/18 13:11 Review of Systems Constitutional Denies chills, Denies fever(s), Denies lethargy and Denies weakness Eyes Denies change in vision, Denies eye discharge, Denies irritation and Denies loss of vision ENT Ears, Nose, Mouth, and Throat: Denies change in voice, Denies neck pain and Denies sore throat Cardiovascular Denies chest pain, Denies irregular heart rhythm, Denies lightheadedness, Denies palpitations, Denies dyspnea, Denies dyspnea on exertion and Denies orthopnea Respiratory Denies cough, Denies dyspnea, Denies dyspnea on exertion and Denies wheezing Gastrointestinal Gastrointestinal: Reports abdominal pain, Denies change in bowel habits, Reports diarrhea, Reports nausea and Reports vomiting Genitourinary Denies hematuria, Denies flank pain, Denies urinary incontinence and Denies urinary urgency Musculoskeletal Reports back pain and Denies neck pain Integumentary/Breasts Denies pruritus, Denies erythema, Denies rash and Denies wounds Neurologic Denies confusion, Denies loss of vision and Denies weakness Psychiatric Denies anxiety, Denies confusion, Denies depression, Denies homicidal ideation and Denies suicidal ideation Endocrine Denies palpitations Hematologic/Lymphatic Denies easy bruising Allergic/Immunologic Denies wheezing REPLACED BY [facility] Medical History Patient denies medical problems (Acute) Social History Smoking Status: Current every day smoker substance use type: IV drugs Social History Smoking Status: Current every day smoker substance use type: IV drugs Exam Narrative Exam Narrative: GENERAL: 23F appears quite uncomfortable, holding an emesis bag HEAD: Atraumatic. Normocephalic. No temporal or scalp tenderness. EYES: Pupils equal round and reactive. Extraocular motions intact. No scleral icterus. No injection or drainage. ENT: Nose without bleeding, purulent drainage or septal hematoma. Throat without erythema, tonsillar hypertrophy or exudate. Uvula midline. Airway patent. NECK: Trachea midline. No JVD or lymphadenopathy. Supple, nontender, no meningeal signs. CARDIOVASCULAR: Regular rate and rhythm without murmurs, gallops, or rubs. RESPIRATORY: Clear to auscultation. Breath sounds equal bilaterally. No wheezes, rales, or rhonchi. GASTROINTESTINAL: Abdomen soft with generalized tenderness and increased bowel sounds. No rebound EXTREMITIES: No clubbing, cyanosis, or edema. No joint tenderness, effusion, or edema noted. BACK: Nontender without deformity or crepitance. No flank tenderness. NEURO: AOx3. SKIN: No rash or erythema. Initial Vital Signs Initial Vital Signs: Vital Signs Temperature 99.6 F 11/22/18 18:05 Pulse Rate 86 11/22/18 18:05 Respiratory Rate 24 11/22/18 18:05 Blood Pressure 153/90 H 11/22/18 18:05 Pulse Oximetry 100 11/22/18 18:05 Course Orders Ordered: ED Orders 11/22/18 19:40 Complete Blood Count AUTO DIFF Stat Comprehensive Metabolic Panel Stat Ondansetron HCl (Zofran) 4 mg IV Q4HR PRN PRN Reason: Nausea And Vomiting Last Admin: 11/22/18 19:51 Dose: 4 mg Discontinued Medications Sodium Chloride (Normal Saline 0.9%) 1,000 mls @ 1,000 mls/hr IV BOLUS ONE Stop: 11/22/18 20:12 Last Infusion: 11/22/18 20:48 Dose: 0 mls/hr Admin: 11/22/18 19:50 Dose: 1,000 mls/hr Sodium Chloride (Normal Saline 0.9%) 1,000 mls @ 1,000 mls/hr IV BOLUS ONE Stop: 11/22/18 21:45 Last Infusion: 11/22/18 22:32 Dose: 0 mls/hr Admin: 11/22/18 20:48 Dose: 1,000 mls/hr Ketorolac Tromethamine (Toradol) 15 mg IV NOW ONE Stop: 11/22/18 19:14 Last Admin: 11/22/18 19:51 Dose: 15 mg Pantoprazole Sodium (Protonix) 40 mg IV NOW ONE Stop: 11/22/18 19:14 Last Admin: 11/22/18 19:51 Dose: 40 mg Prochlorperazine (Compazine) 10 mg IV NOW ONE Stop: 11/22/18 20:54 Last Admin: 11/22/18 21:19 Dose: 10 mg Reevaluation(s) Reevaluation #1: patient history and physical most likely pain the picture of gastroenteritis, but patient pain seems perhaps more intense than what I would expect. For that reason a CT is ordered. She got to CT room and refused the study. I had a discussion with her in CT room about my concern and that without more investigation we could miss a more significant diagnosis such as appendicitis which would require a specific intervention or even surgery, perhaps significant illness or even . The patient has full capacity and refuses CT despite this discussion. She understands that if anything worsens she can come back immediately for repeat evaluation. She is not being DCd AMA. Vital Signs - 8 hr 11/22/18 18:05 03/09/19 21:18 Temperature 99.6 F 98.2 F Pulse Rate 86 81 Respiratory Rate 24 Blood Pressure 153/90 H Blood Pressure [Right Arm] 153/89 H Pulse Oximetry 100 98 MDM - Abdominal Pain Differential Diagnosis Differential diagnosis: Likely abdominal pain, acute appendicitis, diverticulitis, endometriosis, gastroenteritis, pancreatitis and small bowel obstruction Medical Records Attestation: I reviewed the patient's medical records. Lab Data Attestation: I reviewed the patient's lab results. Result diagrams: 11/22/18 19:40 11/22/18 19:40 Lab Results 11/22/18 11/22/18 Range/Units 19:40 19:40 WBC 15.2 H (4.5-11.0) X10^3/uL RBC 4.53 (4.0-5.2) X10^6/uL Hgb 13.5 (12.0-16.0) g/dL Hct 40.9 (36-46) % MCV 90.1 (80-100) fL MCH 29.7 (26-34) PG MCHC 32.9 (30-36) % RDW 13.4 (11.6-14.8) % Plt Count 255 (150-400) X10^3/uL Neut % (Auto) 90.2 H (50-75) % Lymph % (Auto) 8.0 L (25-40) % [place] % (Auto) 1.3 L (3-14) % Eos % (Auto) 0.1 L (2-4) % Baso % (Auto) 0.4 (0-2) % Neut # (Auto) 07528 H (6724-1276) /uL Lymph # (Auto) 1200 (1007-6699) /uL [place] # (Auto) 200 (0-900) /uL Eos # (Auto) 0 (0-450) /uL Baso # (Auto) 100 (0-100) /uL Sodium 137 (137-145) mmol/L Potassium 4.4 (3.4-5.1) mmol/L Chloride 101 (98-107) mmol/L Carbon Dioxide 25 (22-32) mmol/L BUN 10 (7-17) mg/dL Creatinine 0.80 (0.52-1.04) mg/dL Estimated GFR > 60.0 (>60) mL/min BUN/Creatinine Ratio 12.5 (6-22) Glucose 118 H (70-100) mg/dL Calcium 9.5 (8.4-10.2) mg/dL Total Bilirubin 0.6 (0.2-1.3) mg/dL AST 20 (14-36) IU/L ALT 23 (9-52) IU/L Alkaline Phosphatase 78 (38-126) U/L Total Protein 7.9 (6.3-8.2) g/dL Albumin 4.4 (3.5-5.0) g/dL Globulin 3.5 (1.7-4.1) g/dL Albumin/Globulin Ratio 1.3 (1.0-2.8) Point of care testing: Point of Care Testing Test Results Negative MDM Narrative Medical decision making narrative: Multiple etiologies for patient's symptoms considered including: [Appendicitis, gastroenteritis, colitis versus other] Patient's symptoms improved or duration of stay with above-stated therapies. Findings and discharge diagnosis discussed with patient/family followed by verbalization of understanding Return precautions discussed with patient/family whom verbalize understanding. Discharge Plan Departure Patient Disposition: Home Clinical Impression: Gastroenteritis Abdominal pain Qualifiers: Abdominal location: generalized Qualified Code(s): R10.84 - Generalized abdominal pain Instructions: DI for Viral Gastroenteritis -- Adult, DI for Abdominal Pain- Adult Activity Restrictions/Additional Instructions: *You have been diagnosed with [ vomiting, diarrhea, generalized abdominal pain likely due to gastroenteritis ] *What to do: *Take medications as directed *Follow up with your primary care provider in 2-3 days, call for an appointment. Let them know you were seen in the Emergency Department and that we ask that you be seen in follow up *Return to ER if you should have any new, worsening or concerning symptoms, such as [ worsening pain, fever over 101 F, inability to tolerate oral hydration, other bothersome symptoms] 1. Drink plenty of fluids with frequent small sips. 2. For the next 24 hours a clear liquid diet is advised. After that please employ a brat diet which would include bananas, rice, apples, toast. Prescriptions: New promethazine 12.5 mg suppository 12.5 mg CO Q4-6H PRN (Reason: nausea and vomiting) Qty: 12 RF: 0 ondansetron 4 mg tablet,disintegrating 4 mg PO TID-QID PRN (Reason: nausea and vomiting) Qty: 10 RF: 0 No Action medroxyprogesterone 10 mg tablet 20 mg PO Q2HR Qty: 10 RF: 0 naloxone [Narcan] 4 mg/actuation spray,non-aerosol 1 spray Intranasal PRN PRN (Reason: overdose) RF: 0 ketorolac 10 mg tablet 10 mg PO Q6H PRN (Reason: pain) Qty: 14 RF: 0
[2018-11-22] MEDS: SODIUM CHLORIDE 0.9% 1,000 ML 1000 ML IV ×2 (19:50→20:48)
[2018-11-22] MEDS: ONDANSETRON 4 MG/2 ML INJ IV (19:51)
[2018-11-22] MEDS: PANTOPRAZOLE 40 MG VIAL IV (19:51)
[2018-11-22] MEDS: KETOROLAC 60 MG/2 ML VIAL 15 MG IV (19:51)
[2018-11-22 19:58] LABS: Add Manual Diff / Slide Review NO; Basophils Absolute Auto 100 /uL (0-100); Basophils Percent Auto 0.4 % (0-2); Eosinophils Absolute Auto 0 /uL (0-450); Eosinophils Percent Auto 0.1 % (2-4); Hematocrit 40.9 % (36-46); Hemoglobin 13.5 g/dL (12.0-16.0); Lymphocytes Absolute Auto 1200 /uL (1100-4500); Mean Corpuscular HGB Conc 32.9 % (30-36); Mean Corpuscular Hemoglobin 29.7 PG (26-34); Mean Corpuscular Volume 90.1 fL (80-100); Monocytes Absolute Auto 200 /uL (0-900); Monocytes Percent Auto 1.3 % (3-14); Neutrophils Absolute Auto 13700 /uL (1500-7000); Neutrophils Percent Auto 90.2 % (50-75); Platelet Count 255 X10^3/uL (150-400); Red Blood Cell Count 4.53 X10^6/uL (4.0-5.2); Red Cell Distribution Width 13.4 % (11.6-14.8); White Blood Cell Count 15.2 X10^3/uL (4.5-11.0)
[2018-11-22 20:01] LABS: Alanine Aminotransferase 23 IU/L (9-52); Albumin 4.4 g/dL (3.5-5.0); Albumin Globulin Ratio 1.3 (1.0-2.8); Alkaline Phosphatase 78 U/L (38-126); Aspartate Aminotransferase 20 IU/L (14-36); BUN Creatinine Ratio 12.5 (6-22); Bilirubin Total 0.6 mg/dL (0.2-1.3); Blood Urea Nitrogen 10 mg/dL (7-17); Calcium 9.5 mg/dL (8.4-10.2); Carbon Dioxide 25 mmol/L (22-32); Chloride 101 mmol/L (98-107); Estimated Glomerular Filt Rate > 60.0 mL/min (>60); Globulin 3.5 g/dL (1.7-4.1); Glucose 118 mg/dL (70-100); HEMOLYSIS 27 (0-50); Potassium 4.4 mmol/L (3.4-5.1); Sodium 137 mmol/L (137-145); Total Protein 7.9 g/dL (6.3-8.2)
[2018-11-22 21:18] VITALS: BP 153/89; PULSE 81; TEMP 36.8; O2SAT 98
[2018-11-22] MEDS: PROCHLORPERAZINE 10 MG/2 ML VIAL IV (21:19)
[2018-11-22 23:04] VITALS: BP 161/90; PULSE 90; RESP 15; O2SAT 100
== END 2018-11-22 23:06 | disposition home or self-care (01) ==
PROVIDERS: Emergency Provider Emergency Medicine
DX: K52.9 Noninfective gastroenteritis and colitis, unspecified (principal); R10.84 Generalized abdominal pain
CPT/HCPCS: 36415; 80053; 81025; 85025; 96361; 96374; 96375; 99283; 99284; C9113; J0780; J1885; J2405

== ENCOUNTER → 2022-05-22 14:39 | Outpatient (CLI) | payer OTHER, MEDICAID, SELFPAY | PROVIDERS: Visit Provider Registered Nurse | DX: N89.8 Other specified noninflammatory disorders of vagina (principal) | CPT/HCPCS: 87210 ==

== ENCOUNTER 2023-03-12 18:45 | Emergency (ER) | payer SELFPAY ==
--- NOTE | 2023-03-12 18:52 | ED_ITS ---
HPI - General Adult General Chief complaint: Psychiatric Symptoms Stated complaint: HIV+ just found out/ mental health/ Time Seen by Provider: 03/12/23 18:52 History of Present Illness HPI narrative: 19-year-old female smoker presents with her young child with questions and concerns about how to proceed with a recent diagnosis of HIV. She states that she had been living in [place] and went to a clinic (she can not remember the name) for a routine checkup and had a large amount of labs ordered and about 1 month ago had been called and told that she was found to be positive. She has been moving from place to place since then and admittedly was not ready to deal with what comes next and presents today wanting help moving forward. She feels depressed, sad and scared but denies any dizziness, weakness or lightheadedness. She is had no fever or chills. She denies chest pain or shortness of breath. She denies nausea, vomiting or diarrhea. She denies any recent IV drug abuse but does have a history. She denies any known exposures but has had multiple sexual partners. She denies vaginal bleeding or discharge. Does not have a primary care provider Related Data Allergies Allergy/AdvReac Type Severity Reaction Status Date / Time No Known Drug Allergies Allergy Verified 05/22/22 14:30 Review of Systems Review of Systems Narrative: GENERAL: Denies chills, fatigue, malaise, fever, sweats. HEENT: Denies sinus pain, ear pain, sore throat, difficulty swallowing, dizziness. RESPIRATORY: Denies dyspnea, cough, wheezing, hemoptysis, sputum. CARDIOVASCULAR: Denies chest pain, palpitations, orthopnea, edema, GASTROINTESTINAL: Denies nausea, vomiting, abdominal pain, diarrhea, constipation, melena. : Denies dysuria, frequency, incontinence, hematuria, urinary retention. MUSCULOSKELETAL: denies weakness, joint pain, or bony pain SKIN: Denies rash, skin lesions, or other NEUROLOGIC: Denies weakness, headache, numbness, change in speech, confusion, seizures, incoordination. PSYCHIATRIC: See HPI 12 point review of systems is negative except for those stated above Patient History Medical History Patient denies medical problems Social History Smoking Status: Current every day smoker substance use type: IV drugs Smoking Status: Current every day smoker alcohol intake frequency: 0-2 drinks per day Substance Use Type: marijuana Exam Narrative Exam Narrative: GENERAL: [27] year old patient appears stated age. Well-developed patient, in mild distress. Tearful HEAD: Atraumatic. Normocephalic. EYES: Pupils equal round and reactive. Extraocular motions intact. No scleral icterus. No injection or drainage. ENT: Nose without bleeding, purulent drainage. Throat without erythema, tonsillar hypertrophy or exudate. Airway patent. NECK: Trachea midline. Non tender CARDIOVASCULAR: Regular rate and rhythm without murmurs, gallops, or rubs. RESPIRATORY: Clear to auscultation. Breath sounds equal bilaterally. No wheezes, rales, or rhonchi. GASTROINTESTINAL: Abdomen soft, non-tender, nondistended. EXTREMITIES: No edema or joint tenderness. BACK: Nontender without deformity or crepitance. No flank tenderness. NEURO: AOx3. SKIN: No rash or erythema of visible areas Initial Vital Signs Initial Vital Signs: Vital Signs Temperature 98 F 03/12/23 18:55 Pulse Rate 87 03/12/23 18:55 Respiratory Rate 18 03/12/23 18:55 Blood Pressure 144/72 H 03/12/23 18:55 Pulse Oximetry 97 03/12/23 18:55 Oxygen Delivery Method Room Air 03/12/23 18:55 Course Orders Ordered: ED Orders 03/12/23 20:25 CBC Auto Diff [Complete Blood Count AUTO DIFF] Stat CMP [Comprehensive Metabolic Panel] Stat HIV 1 & 2 Ab/Ag 4th Gen Combo Stat Hepatitis Acute Panel Stat Consultations Consultation #1: discussed with Dr. Raymundo. She recommends repeating labs and provided she is found to be HIV positive she is happy to see the patient in the clinic and reque sts I sent over contact information. Vital Signs Vital signs: Vital Signs - 8 hr 03/12/23 18:55 Temperature 98 F Pulse Rate 87 Respiratory Rate 18 Blood Pressure 144/72 H Pulse Oximetry 97 Oxygen Delivery Method Room Air Medical Decision Making Lab Data 03/12/23 20:25 03/12/23 20:25 Labs: Lab Results 03/12/23 03/12/23 03/12/23 Range/Units 20:25 20:25 20:25 WBC 7.7 (4.5-11.0) X10^3/uL RBC 4.15 (4.0-5.2) X10^6/uL Hgb 12.6 (12.0-16.0) g/dL Hct 37.4 (36-46) % MCV 90.1 (80-100) fL MCH 30.4 (26-34) PG MCHC 33.7 (30-36) % RDW 13.6 (11.6-14.8) % Plt Count 238 (150-400) X10^3/uL Neut % (Auto) 58.1 (50-75) % Lymph % (Auto) 31.3 (25-40) % [place] % (Auto) 4.8 (3-14) % Eos % (Auto) 5.1 H (2-4) % Baso % (Auto) 0.7 (0-2) % Neut # (Auto) 4500 (0284-6215) /uL Lymph # (Auto) 2400 (7573-0977) /uL [place] # (Auto) 400 (0-900) /uL Eos # (Auto) 400 (0-450) /uL Baso # (Auto) 100 (0-100) /uL Sodium 137 (137-145) mmol/L Potassium 4.4 (3.4-5.1) mmol/L Chloride 102 (98-107) mmol/L Carbon Dioxide 30 (22-32) mmol/L BUN 15 (7-17) mg/dL Creatinine 0.73 (0.52-1.04) mg/dL Estimated GFR > 60 (>60) mL/min BUN/Creatinine Ratio 20.5 (6-22) Glucose 101 H (70-100) mg/dL Calcium 9.1 (8.4-10.2) mg/dL Total Bilirubin 0.2 (0.2-1.3) mg/dL AST 21 (14-36) IU/L ALT 21 (<35) IU/L Alkaline Phosphatase 87 (38-126) U/L Total Protein 7.1 (6.3-8.2) g/dL Albumin 4.3 (3.5-5.0) g/dL Globulin 2.8 (1.7-4.1) g/dL Albumin/Globulin Ratio 1.5 (1.0-2.8) HIV 1&2 Ab/P24 Ag 4thGn Negative (NEGATIVE) MDM Narrative Medical decision making narrative: [27] year old patient presents with anxiety and depression in the aftermath of receiving a diagnosis of HIV and possibly hepatitis-C at an outside clinic Multiple etiologies for patient's symptoms considered including, but not limited to: [HIV versus hepatitis-C versus other] Prior Charts reviewed in our EMR Primary Historian: patient Labs reviewed and interpreted by myself: CBC and CMP within normal. HIV negative. Hepatitis panel pending Consultations: Dr. Raymundo (ID at [facility]) see details above Patient is concerned about how to proceed given recent diagnosis of HIV. Our labs were negative. There is no indication for any treatment or therapy at this time. Hepatitis panel is pending. I strongly encouraged patient to reach out to the clinic in [place] and obtain records. I have provided her with contact information for Dr. Vasuqez who is happy to see her in consultation. Findings and discharge diagnosis discussed with patient/family followed by verb alization of understanding Return precautions discussed with patient/family whom verbalize understanding of diagnosis and plan Discharge Plan Departure Patient Disposition: Home Clinical Impression: Feared complaint without diagnosis Activity Restrictions/Additional Instructions: *You have been diagnosed with [your blood test tonight was negative. There are still some outstanding tests looking at hepatitis and we will call you if there is any abnormal finding.] *What to do: *Please continue to take your regular medications as directed. [ *Please follow up with your primary care provider in 2-3 days, call for an appointment. Let them know you were seen in the Emergency Department and that we ask that you be seen in follow up. We will electronically transmit a record of today's note if your PCP is in our system *If you do not have a primary care provider please contact the [facility] Resource line at [phone]. They will ask some questions about your medical history and help get you set up with a doctor in the community. * as we discussed I have included contact information for Dr. Raymundo at [facility], she is an infectious disease specialist and would be an appropriate person to follow-up with provided the records from [place] demonstrate a positive test. Please call her office number below, let them know you were seen in the emergency department and we would like you seen in follow- up. *Return to Emergency Department if you should have any new, worsening or concerning symptoms, such as [fever greater than 101 F, shaking chills, worsening pain, persistent vomiting or other bothersome symptoms] Referrals: Sarah Raymundo MD [Non-Staff] - Miscellaneous,MD John [Primary Care Provider] - Stand Alone Forms: Patient Portal/API
[2023-03-12 18:55] VITALS: BP 144/72; PULSE 87; RESP 18; TEMP 36.6; O2SAT 97; BMI 40.2
[2023-03-12 20:37] LABS: Add Manual Diff / Slide Review NO; Basophils Absolute Auto 100 /uL (0-100); Basophils Percent Auto 0.7 % (0-2); Eosinophils Absolute Auto 400 /uL (0-450); Eosinophils Percent Auto 5.1 % (2-4); Hematocrit 37.4 % (36-46); Hemoglobin 12.6 g/dL (12.0-16.0); Lymphocytes Absolute Auto 2400 /uL (1100-4500); Lymphocytes Percent Auto 31.3 % (25-40); Mean Corpuscular HGB Conc 33.7 % (30-36); Mean Corpuscular Hemoglobin 30.4 PG (26-34); Mean Corpuscular Volume 90.1 fL (80-100); Monocytes Absolute Auto 400 /uL (0-900); Monocytes Percent Auto 4.8 % (3-14); Neutrophils Absolute Auto 4500 /uL (1500-7000); Neutrophils Percent Auto 58.1 % (50-75); Platelet Count 238 X10^3/uL (150-400); Red Blood Cell Count 4.15 X10^6/uL (4.0-5.2); Red Cell Distribution Width 13.6 % (11.6-14.8); White Blood Cell Count 7.7 X10^3/uL (4.5-11.0)
[2023-03-12 20:54] LABS: Alanine Aminotransferase 21 IU/L (<35); Albumin 4.3 g/dL (3.5-5.0); Albumin Globulin Ratio 1.5 (1.0-2.8); Alkaline Phosphatase 87 U/L (38-126); Aspartate Aminotransferase 21 IU/L (14-36); BUN Creatinine Ratio 20.5 (6-22); Bilirubin Total 0.2 mg/dL (0.2-1.3); Blood Urea Nitrogen 15 mg/dL (7-17); Calcium 9.1 mg/dL (8.4-10.2); Carbon Dioxide 30 mmol/L (22-32); Chloride 102 mmol/L (98-107); Estimated Glomerular Filt Rate > 60 mL/min (>60); Globulin 2.8 g/dL (1.7-4.1); Glucose 101 mg/dL (70-100); HEMOLYSIS 21 (0-50); Potassium 4.4 mmol/L (3.4-5.1); Sodium 137 mmol/L (137-145); Total Protein 7.1 g/dL (6.3-8.2)
[2023-03-12 21:41] LABS: HIV 1 & 2 Ab/Ag 4th Gen Combo NEGATIVE (NEGATIVE)
[2023-03-14 00:07] LABS: HBsAg Screen Negative (Negative); Hepatitis A Antibody IgM Negative (Negative); Hepatitis B Core Antibody IgM Negative (Negative); Hepatitis C Antibody Non Reactive (Non Reactive)
== END 2023-03-12 22:29 | disposition home or self-care (01) ==
PROVIDERS: Emergency Provider Emergency Medicine
DX: Z71.1 Person with feared health complaint in whom no diagnosis is made (principal)
CPT/HCPCS: 80053; 80074; 85025; 87389; 99282; 99283